=== PATIENT | female | born 1960 | race Caucasian/White ===

== ENCOUNTER → 2019-02-14 | Outpatient (REF) | payer OTHER ==
[2019-02-14 18:50] LABS: APPEARANCE, URINE CLEAR (CLEAR); BACTERIA, URINE AUTO NEGATIVE (NEGATIVE); BILIRUBIN, URINE AUTO NEGATIVE (NEGATIVE); BLOOD, URINE BLOOD NEGATIVE (NEGATIVE); COLOR, URINE YELLOW (YELLOW); GLUCOSE, URINE (UA) AUTO NEGATIVE (NEGATIVE); KETONE, URINE AUTO NEGATIVE (NEGATIVE); LEUKOCYTE ESTERASE, URINE AUTO NEGATIVE (NEGATIVE); NITRITE, URINE AUTO NEGATIVE (NEGATIVE); PROTEIN, URINE AUTO NEGATIVE (NEGATIVE); RBC, URINE AUTO 1 /HPF (0-3); SPECIFIC GRAVITY URINE AUTO 1.008 (1.002-1.035); SQUAMOUS EPITHELIAL CELL UR AU 0 /HPF (0-6); UROBILINOGEN, URINE AUTO 0.2 mg/dL (0.0-2.0); WBC, URINE AUTO 1 /HPF (0-3)
== END ==
LOC: M SMT 17:26
PROVIDERS: ATTEND Nurse Practitioner Family
DX: N39.0 Urinary tract infection, site not specified (principal)

== ENCOUNTER → 2022-07-31 | Outpatient (CLI) | payer OTHER | LOC: M PLAIMG 09:46 | PROVIDERS: ATTEND Otolaryngology | DX: H90.3 Sensorineural hearing loss, bilateral (principal) ==

== ENCOUNTER → 2023-02-17 | Outpatient (CLI) | payer OTHER | LOC: M PLARAD 12:45 | PROVIDERS: ATTEND Family Medicine | DX: R91.1 Solitary pulmonary nodule (principal) ==

== ENCOUNTER → 2023-02-23 | Outpatient (CLI) | payer OTHER ==
[2023-02-23 15:57] LABS: IMMUNOGLOBULIN A 202.8 MG/DL (40-350); IMMUNOGLOBULIN M 130.3 MG/DL (50-300)
== END ==
LOC: M LAB 12:15
PROVIDERS: ATTEND Internal Medicine Pulmonary Disease
DX: J47.9 Bronchiectasis, uncomplicated (principal)

== ENCOUNTER → 2023-03-08 | Outpatient (CLI) | payer OTHER ==
[~2023-03-08] MED LIST: CRAN400C PO; D3 M1CAP2 PO; LEVO75CA2 PO; PROBCAP14 PO; ROSU5TAB5 PO; VENTAER INH; [UNRECOGNIZED DRUG - CODE] PO
[2023-03-08 09:16] LABS: PLATELET COUNT, AUTOMATED 226 10^3/uL (150-450)
[2023-03-08 09:50] LABS: INR 0.91; PROTHROMBIN TIME 12.5 SECONDS (12.5-14.5)
[2023-03-08 09:51] LABS: PARTIAL THROMBOPLASTIN TIME 31.3 SECONDS (24.8-34.2)
== END ==
LOC: M RAD 07:45
PROVIDERS: ATTEND Internal Medicine Pulmonary Disease
DX: R91.8 Other nonspecific abnormal finding of lung field (principal); Z01.812 Encounter for preprocedural laboratory examination

== ENCOUNTER 2023-03-10 06:02 | Day surgery (SDC) | payer OTHER ==
[~2023-03-10] VITALS: Ht 167.6 cm; Wt 57.8 kg
[2023-03-10] MEDS ORDERED: LR 1,000 ML IV SCH ×2 (06:25→08:45)
[2023-03-10 06:40] LABS: HEMATOCRIT 41.7 % (36.0-47.0); HEMOGLOBIN 13.2 g/dl (12.0-15.5); MEAN CORPUSCULAR HGB CONC 31.7 g/dl (32.0-36.5); MEAN CORPUSCULAR VOLUME 88.5 fl (80.0-96.0); PLATELET COUNT, AUTOMATED 242 10^3/uL (150-450); RED BLOOD COUNT 4.71 10^6/uL (4.00-5.40); WHITE BLOOD COUNT 7.1 10^3/uL (4.0-10.0)
[2023-03-10] MEDS ORDERED: ONDANSETRON 4MG 2ML VIAL As Ordered ONE (06:52)
[2023-03-10] MEDS ORDERED: SUGAMMADEX SODIUM 500 MG/5 ML VIAL (BRIDION) As Ordered ONE (06:52)
[2023-03-10] MEDS ORDERED: LIDOCAINE 2% 100MG/5ML SDV (FOR ANES.) As Ordered ONE (06:52)
[2023-03-10] MEDS ORDERED: propofoL 200 MG/20 ML VIAL As Ordered ONE (06:52)
[2023-03-10] MEDS ORDERED: ROCURONIUM BROMIDE 50MG/5ML VIAL As Ordered ONE (06:52)
[2023-03-10] MEDS ORDERED: fentaNYL 100 MCG/2 ML INJECTION As Ordered ONE (06:58)
[2023-03-10] MEDS ORDERED: MIDAZOLAM INJ 2MG/2ML VIAL As Ordered ONE (06:58)
[2023-03-10] MEDS ORDERED: ALBUTEROL SULFATE 2.5MG/0.5ML INH NEB SOLN NEB ONE (07:00)
[2023-03-10] MEDS ORDERED: LIDOCAINE PRES-FREE 2% 10ML AMP NEB ONE (07:00)
[2023-03-10] MEDS ORDERED: EPINEPHrine 1MG/10ML SYRINGE 1.5IN As Ordered ONE (07:13)
[2023-03-10] MEDS ORDERED: THROMBIN 5,000 UNITS VIAL As Ordered ONE (07:13)
[2023-03-10] MEDS ORDERED: CETACAINE SPRAY 5GM As Ordered ONE (07:13)
[2023-03-10] MEDS ORDERED: SCOPOLAMINE 1MG TRANSDERMAL PATCH TOP ONE (07:25)
[2023-03-10] MEDS ORDERED: SCOPOLAMINE 1MG TRANSDERMAL PATCH As Ordered ONE (07:37)
[2023-03-10] MEDS ORDERED: ACETAMINOPHEN 1000MG 100ML IV BAG As Ordered ONE (07:44)
[2023-03-10] MEDS ORDERED: oxyCODONE 5MG TAB PO PRN (08:45)
[2023-03-10] MEDS ORDERED: ONDANSETRON 4MG 2ML VIAL IV PRN (08:45)
[2023-03-10] MEDS ORDERED: fentaNYL 100 MCG/2 ML INJECTION IV PRN (08:45)
[2023-03-10] MEDS ORDERED: HYDROMORPHONE HCL 0.5 MG/ 0.5 ML SYRINGE IV PRN (08:45)
[2023-03-10 10:21] VITALS: BP 123/69; TEMP 98; O2SAT 95
[2023-03-25] MEDS ORDERED: PSEU30TA86 PO (17:11)
[2023-03-26] MEDS ORDERED: PHEN10TA3 PO (12:59)
== END 2023-03-10 10:23 | disposition home or self-care (01) ==
LOC: M SDC 06:02
PROVIDERS: ATTEND Internal Medicine Pulmonary Disease
DX: R91.1 Solitary pulmonary nodule (principal); R91.8 Other nonspecific abnormal finding of lung field; J47.9 Bronchiectasis, uncomplicated; E03.9 Hypothyroidism, unspecified; Z79.51 Long term (current) use of inhaled steroids; Z79.899 Other long term (current) drug therapy
CPT/HCPCS: 31623; 31624; 31652; 36415; 71045; 76000; 85027; 87070; 87071; 87102; 87116; 87205; 87206; 88104; 88305; J0131; J0171; J1100; J2250; J2405; J3010

== ENCOUNTER → 2023-03-26 | Outpatient (CLI) | payer OTHER ==
[~2023-03-26] MED LIST changes: +HOME MED LIST COMPLETE! XX SCH; +LIDOCAINE 1% MDV 20ML VIAL As Ordered ONE; +PHEN10TA3 PO; +PSEU30TA86 PO
[2023-03-26 11:35] VITALS: TEMP 99.1
[2023-03-26 14:00] VITALS: BP 106/61; O2SAT 97
== END ==
LOC: M IRPRO 11:29
PROVIDERS: ATTEND Internal Medicine Pulmonary Disease
DX: R91.8 Other nonspecific abnormal finding of lung field (principal)

== ENCOUNTER → 2023-04-27 | Outpatient (CLI) | payer OTHER ==
[~2023-04-27] MED LIST changes: -HOME MED LIST COMPLETE! XX SCH; -LIDOCAINE 1% MDV 20ML VIAL As Ordered ONE
[2023-04-27 15:59] LABS: BASO % 0.4 % (0.0-1.0); EOS # 0.2 10^3/uL (0.0-0.5); EOS % 1.9 % (0.0-3.0); HEMATOCRIT 41.6 % (36.0-47.0); HEMOGLOBIN 13.9 g/dl (12.0-15.5); LYMPH # 3.1 10^3/uL (1.5-5.0); LYMPH % 38.8 % (24.0-44.0); MEAN CORPUSCULAR HEMOGLOBIN 30.4 pg (27.0-33.0); MEAN CORPUSCULAR HGB CONC 33.4 g/dl (32.0-36.5); MONO # 0.6 10^3/uL (0.0-0.8); MONO % 7.6 % (2.0-8.0); NEUTROPHILS # 4.1 10^3/uL (1.5-8.5); NEUTROPHILS % 51.1 % (36.0-66.0); PLATELET COUNT, AUTOMATED 237 10^3/uL (150-450); RED BLOOD COUNT 4.57 10^6/uL (4.00-5.40); WHITE BLOOD COUNT 8.1 10^3/uL (4.0-10.0)
[2023-04-27 16:48] LABS: ERYTHROCYTE SEDIMENTATION RATE 40 mm/hr (0-30)
== END ==
LOC: M PLALAB 12:20
PROVIDERS: ATTEND Internal Medicine Infectious Disease
DX: A31.0 Pulmonary mycobacterial infection (principal); J98.4 Other disorders of lung

== ENCOUNTER → 2023-07-13 | Outpatient (CLI) | payer MEDICARE, OTHER | LOC: M PLAIMG 10:32 | PROVIDERS: ATTEND Internal Medicine Pulmonary Disease | DX: R91.8 Other nonspecific abnormal finding of lung field (principal); J47.9 Bronchiectasis, uncomplicated ==

== ENCOUNTER → 2024-03-06 | Outpatient (CLI) | payer MEDICARE, OTHER ==
[~2024-03-06] MED LIST changes: -CRAN400C PO; +CRANBERRY400 MG PO; -PSEU30TA86 PO; +PSEU30TA87 PO; +ROSU5TAB40 PO; -ROSU5TAB5 PO
== END ==
LOC: M PLAIMG 13:09
PROVIDERS: ATTEND Internal Medicine Pulmonary Disease
DX: R91.8 Other nonspecific abnormal finding of lung field (principal)

== ENCOUNTER 2024-10-20 13:05 | Day surgery (SDC) | payer MEDICARE, OTHER ==
[~2024-10-20] VITALS: Ht 167.6 cm; Wt 59.2 kg
[~2024-10-20 13:05] MED LIST changes: +CRAN450T4 PO; -ROSU5TAB40 PO; +ROSU5TAB49 PO
[2024-10-20] MEDS ORDERED: NS (Normal Saline) 0.9% 1,000 ML IV SCH (13:50)
[2024-10-20] MEDS ORDERED: LIDOCAINE 2% 100MG/5ML SDV (FOR ANES.) As Ordered ONE (15:45)
[2024-10-20] MEDS ORDERED: propofoL 200 MG/20 ML VIAL As Ordered ONE (15:45)
[2024-10-20] MEDS ORDERED: MIDAZOLAM INJ 2MG/2ML VIAL As Ordered ONE (15:45)
[2024-10-20] MEDS ORDERED: fentaNYL 100 MCG/2 ML INJECTION As Ordered ONE (15:45)
[2024-10-20] MEDS ORDERED: ONDANSETRON 4MG 2ML VIAL As Ordered ONE (15:45)
[2024-10-20] MEDS: ceFAZolin SOD 2 GM in IV 1 EA IV ONE (16:43)
[2024-10-20] MEDS ORDERED: KETOROLAC 60MG 2ML VIAL As Ordered ONE (16:44)
[2024-10-20] MEDS ORDERED: ACETAMINOPHEN 1000MG/100ML IV BAG As Ordered ONE (16:44)
[2024-10-20] MEDS: LIDOCAINE 2% MDV 20ML VIAL As Ordered ONE (16:48)
[2024-10-20] MEDS: GENTAMICIN SULF 80MG/2ML VIAL As Ordered ONE (17:07)
[2024-10-20 18:00] VITALS: BP 133/73; TEMP 97.4; O2SAT 95
== END 2024-10-20 18:35 | disposition home or self-care (01) ==
LOC: M SDC 13:05
PROVIDERS: ATTEND Podiatrist
DX: M20.12 Hallux valgus (acquired), left foot (principal); E03.9 Hypothyroidism, unspecified; E78.00 Pure hypercholesterolemia, unspecified; Z79.899 Other long term (current) drug therapy; Z79.890 Hormone replacement therapy
CPT/HCPCS: 28296; 73630; 76000; 88300; 97116; 97530; C1713; J0131; J0665; J0690; J1100; J1580; J1885; J2250; J2405; J3010

== ENCOUNTER → 2025-05-04 | Outpatient (CLI) | payer MEDICARE, OTHER ==
[~2025-05-04] MED LIST changes: -LEVO75CA2 PO; +LEVO75CA3 PO
== END ==
LOC: M PLAIMG 08:57
PROVIDERS: ATTEND Internal Medicine Pulmonary Disease
DX: J47.9 Bronchiectasis, uncomplicated (principal); A31.0 Pulmonary mycobacterial infection; R91.8 Other nonspecific abnormal finding of lung field; I25.10 Atherosclerotic heart disease of native coronary artery without angina pectoris; J92.9 Pleural plaque without asbestos